=== PATIENT | male | born 1985 | race Caucasian/White ===

== ENCOUNTER 2023-12-12 09:16 | Outpatient (CLI) | payer MEDICAID, SELFPAY ==
--- OUTSIDE RECORDS SUMMARY | 2023-12-12 09:23 | XMS_ITS | Clinical Summary ---
Demographics Address [facility] [address] [place] [address] Home Phone Phone Email Address m Preferred Language Welsh Marital Status Unknown Catholic Affiliation Unknown Race White Ethnic Group Not or Lati no Author Name Unknown Organization [facility] Address [place], [place] [address] Care Team Providers Care Oncology Consultant Name Role Phone Pcp, No Primary Care Provider Unavailabl e Allergies No known active allergies Medications Medication Sig Dispensed Refills Start Date End Date Status azithromycin (ZITHROMAX) 250 mg tabletIndications:Unsp ecified otitis media Take 500 mg (2 tabs) by mouth on day 1, then 250 mg (1 tab) daily for days 2-5. 6 tablet 0 11/24/2012 Active Active Problems Problem Noted Date Diagnosed Date Crohn's disease 11/05/2012 Asperger's disorder 11/05/2012 Resolved Problems Problem Noted Date Diagnosed Date Resolved Date Ulcerative colitis 10/23/2012 3 Family History Medical History Relation Name Comments Genetic Maternal Grandfather Cancer-colon Other Maternal side Relation Name Status Comments Brother Alive Father Alive Maternal Grandfather Mother Alive Other Sister Alive Social History Tobacco Use Types Packs/Day Years Used Date Smoking Tobacco: Never Smokeless Tobacco: Never Tobacco Cessation:Counseling Given: No Alcohol Use Standard Drinks/Week Comments No 0 (1 standard drink = 0.6 oz pur e alcohol) Sex and Gender Information Value Date Recorded Sex Assigned at Not on file Gender Identity Not on file Sexual Orientation Not on file Obstetrics History Last Filed Vital Signs Vital Sign Reading Time Taken Comments Blood Pressure 112/75 11/24/2012 10:44 AM CDT Pulse 106 11/24/2012 10:44 AM CDT Temperature 38.2 ??C (100.7 ??F) 11/24/2012 10:44 AM CDT Respiratory Rate - - Oxygen Saturation 96% 11/24/2012 10: 44 AM CDT Inhaled Oxygen Concentration - - Weight 117.3 kg (258 lb 9.6 oz) 013 10:44 AM CDT Height - - Body Mass Index - - Plan of Treatment Health Maintenance Due Date Last Done Comments Tdap 1994 Depression screening for age 12+ 1995 HIV for age 15-65 1998 BMI (ht and wt on same day) for age 18+ 2001 Hepatitis C screening for ag e 18-79 2001 Tetanus booster 2003 Lipids for age 35-44 2018 COVID-19 vaccine series (2022-24 season) 2023 Influenza for age 9-49 04/07/2024 Pneumococcal series for age 6-64 Aged Out No longer eligible based on patient's age to complete this topic Care Teams Oncology Consultant Relationship Specialty Start Date End Date Pcp, No . PCP - General 09/24/12
== END 2023-12-12 09:17 | disposition home or self-care (01) ==
PROVIDERS: PCP Family Medicine; Visit Provider Family Medicine
DX: R53.83 Other fatigue (principal); Z13.228 Encounter for screening for other metabolic disorders; Z13.220 Encounter for screening for lipoid disorders; Z13.29 Encounter for screening for other suspected endocrine disorder
CPT/HCPCS: 80053; 80061; 84443

== ENCOUNTER 2025-07-07 14:48 | Outpatient (CLI) | payer OTHER, SELFPAY | END 2025-07-07 14:49 | disposition home or self-care (01) | LOC: NFLDREF 07-11 08:04 | PROVIDERS: PCP Family Medicine; Referring Provider Family Medicine; Visit Provider Family Medicine | DX: Z00.00 Encounter for general adult medical examination without abnormal findings (principal); E78.5 Hyperlipidemia, unspecified | CPT/HCPCS: 80053; 80061 ==